=== PATIENT | male | born 1970 | race Caucasian/White ===

== ENCOUNTER 2019-02-22 09:48 | Inpatient (IN) | payer OTHER ==
[~2019-02-22] VITALS: Ht 175.3 cm; Wt 112.9 kg
[2019-02-22] VITALS (21 sets, daily range): BP systolic 103–135; BP diastolic 57–85; PULSE 61–89; RESP 12–20; Ht 175.3 cm; Wt 112.9 kg
[2019-02-22] MEDS ORDERED: CEFAZOLIN 2 GM/50 ML (PMX) 50 ML IVPB ONE (12:00)
[2019-02-22] MEDS ORDERED: SOD CHLORIDE 0.9% 1,000 ML IV SCH (12:00)
[2019-02-22] MEDS ORDERED: BUPIVACAINE 0.25% (MPF) 30 ML INJ ONE (13:54)
[2019-02-22] MEDS ORDERED: POLYMYXIN/BACITRACIN 1L IRRIG ONE (13:54)
--- NOTE | 2019-02-22 14:01 | PREAC ---
Date/Time of Note Date/Time of Note DATE: 02/22/19 TIME: 14:00 Anesthesia Eval and Record Evaluation Time Pre-Procedure Interview DATE: 02/22/19 TIME: 14:00 Age 48 Sex male NPO: 8 hrs Preoperative diagnosis Abdominal wall defect, ventral hernia Planned procedure Open component separation with mesh Past Medical History Past Medical History: Includes GI: Obesity Surgery & Anesthesia Issues No known issue Meds Anticoagulation: No Beta Shayla within 24 hr: No Reason Beta Shayla not given: Pt. not on B-Shayla Current Medications Sodium Chloride 1,000 ml @ 75 mls/hr [id number] IV ; Start 02/22/19 at 12:00; Stop 02/23/19 at 01:19 Meds reviewed: Yes Allergies Coded Allergies: No Known Allergy (Unverified , 02/21/19) Allergies Reviewed: Yes Labs/Studies Labs Reviewed: Reviewed by anesthesiologist Result Diagram: 02/22/19 1212 02/22/19 1212 Laboratory Tests 02/22/19 12:12 test: N/A Pre-procedure Exam Last vitals Vital Signs Date Temp Pulse Resp B/P (MAP) Pulse Ox O2 O2 Flow FiO2 Time Delivery Rate 02/22/19 98.2 61 18 130/82 96 12:07 (98) Airway: Adequate mouth opening Mallampati: Mallampati II Teeth: Normal Lung: Normal Heart: Normal ASA Physical Status ASA physical status: 2 Emergency: None Planned Anesthetic General/MAC: ETT Planned Pain Management Parenteral pain med Pre-operative Attestations Prior to commencing anesthesia and surgery, the patient was re-evaluated, there was verification of: *The patient's identity *The results of appropriate recent lab work and preoperative vital signs *The above evaluation not changing prior to induction *Anesthetic plan, risk benefits, alternative and complications discussed with patient/family; questions answered; patient/family understands, accepts and wishes to proceed. MICHELLE PALMER MD Feb 22, 2019 14:01
[2019-02-22] MEDS ORDERED: ROCURONIUM 50 MG INJ ONE ×2 (14:07→15:07)
[2019-02-22] MEDS ORDERED: SUCCINYLCHOLINE CHLORIDE 100 MG/5 ML SYG IV ONE (14:07)
[2019-02-22] MEDS ORDERED: GLYCOPYRROLATE 0.4 MG INJ ONE ×2 (14:07→14:30)
[2019-02-22] MEDS ORDERED: NEOSTIGMINE 3 MG/3 ML SYRINGE ONE (14:07)
[2019-02-22] MEDS ORDERED: LIDOCAINE 2% (SDV) 5 ML INJ ONE (14:08)
[2019-02-22] MEDS ORDERED: PROPOFOL 20 ML ONE (14:08)
[2019-02-22] MEDS ORDERED: ONDANSETRON 4 MG INJ ONE ×2 (14:30→16:02)
[2019-02-22] MEDS ORDERED: METOCLOPRAMIDE 10 MG INJ ONE (14:30)
[2019-02-22] MEDS ORDERED: ATROPINE 1 MG/10 ML SYRINGE ONE (14:47)
[2019-02-22] MEDS ORDERED: FENTAnyl 50 MCG/ML VIAL ONE (15:25)
[2019-02-22] MEDS ORDERED: CEFAZOLIN 2 GM/50 ML (PMX) 50 ML IVPB SCH (15:30)
--- NOTE | 2019-02-22 15:30 | OPR ---
Date/Time of Note Date/Time of Note DATE: 02/22/19 TIME: 15:23 Operative Report Procedure Date: Feb 22, 2019 Preoperative Diagnosis abdominal wall defect and incarcerated ventral hernia Postoperative Diagnosis same Operation/Procedure Performed 1. right rectus musculofascial flap cpt code 51265 2. left rectus musculofascial flap cpt code 93694 3. open incarcerated ventral hernia repair 4. implantation of 15 cm x 15 cm prolene mesh 5. open lysis of adhesions 6. localized adjacent tissue transfer with the use of skin flaps 88 sq cm defect of abd 7. therapeutic injection of subcutaneous local anesthesia Surgeon see signature line [employer] Tyler Anesthesia Type: general Estimated Blood Loss: 10 - 50 ml's Transfusion none Specimen none Grafts/Implants none Complications none Pt Condition Post Procedure: stable Indications This is a 48-year-old male with an abdominal defect and an incarcerated ventral hernia. He has a history of amphetamine use. He is currently doing well and is not using any illicit drugs. He request surgical repair of his abdominal defect and is incarcerated ventral hernia. Risks alternatives benefits and personal were discussed the patient. Potential complications including but not limited to bleeding infection injury to surrounding tissues mesh infection recurrence of hernia and need for additional operations were discussed the patient. Additionally due to his prior history of amphetamine use we talked at length about his postoperative pain medication regimen trying to focus more on Motrin and NSAID therapy versus narcotic therapy however he was told that he may need some narcotics in the immediate postoperative. And he was unwilling to try to minimize narcotic use. He expressed understanding of this discussion and consents to the operation. Procedure Description Patient is taken to the OR and prepped and draped in usual sterile fashion. Surgical time was performed. IV antibiotics given. Midline incision was made at the 10 blade. This generous incision was made from the subxiphoid region all the way down to the umbilicus and malachi-umbilicus and infraumbilical region. Dissection with cautery was carried down through the decussation of the rectus sheath. This incision was extended superiorly and inferiorly. The left rectus muscular fascial flap was then developed by developing the retrorectus space this incision was made with cautery and extended longitudinally superiorly and inferiorly. The retrorectus space was then developed and this was then carried out on the right side by developing the right rectus muscular fascial flap. We entered the retro-rectus space and this incision was extended superiorly inferiorly. The posterior rectus sheath was identified the ventral hernia was identified. Lysis of adhesions was performed and the incarcerated contents were manually reduced. After that the posterior rectus sheath was then closed in a primary fashion with a running #1 loop PDS from superior to inferior and inferior to superior and tied down the midline. The defect was then bolstered with a 15 x 15 polypropylene mesh. This was secured to the anterior rectus sheath with interrupted #1 Prolene. After the mesh was secured and hemostasis was ensured the anterior rectus sheath was then reapproximated in a running fashion from superior inferior and inferior superior with #1 loop PDS and tied down. Skin flaps were then developed and due to the large defect localization to his transfer with use of skin flaps was performed. Multilayer closure. The skin was then closed with skin qasim. Therapeutic subcutaneous local anesthesia was injected at the incision site. Dry dressings were applied. Edwardo MEYERS Feb 22, 2019 15:30
[2019-02-22] MEDS ORDERED: HYDROmorphONE 1 MG/5 ML IV SYRINGE IV PRN ×3 (16:00)
[2019-02-22] MEDS ORDERED: METOCLOPRAMIDE 10 MG INJ IV PRN (16:00)
[2019-02-22] MEDS ORDERED: FENTAnyl 50 MCG/ML VIAL IV PRN ×3 (16:00)
[2019-02-22] MEDS ORDERED: DIPHENHYDRAMINE 50 MG INJ IV PRN (16:00)
[2019-02-22] MEDS ORDERED: LABETALOL HCL 20MG INJ IV PRN (16:00)
[2019-02-22] MEDS ORDERED: MIDAZOLAM 1 MG/ML 2 ML INJ IV PRN (16:00)
[2019-02-22] MEDS ORDERED: MEPERIDINE 25 MG INJ IV PRN (16:00)
[2019-02-22] MEDS ORDERED: EPHEDrine 25 MG/5 ML SYG IV PRN (16:00)
[2019-02-22] MEDS ORDERED: hydrALAzine 20 MG INJ IV PRN (16:00)
[2019-02-22] MEDS ORDERED: OXYCODONE/ACETAMINOPHEN (5/325) TAB PO PRN ×2 (16:00)
[2019-02-22] MEDS ORDERED: ONDANSETRON 4 MG INJ IV PRN ×2 (16:00→23:00)
[2019-02-22] MEDS ORDERED: HYDROmorphONE 1 MG/5 ML IV SYRINGE IV ONE (16:01)
--- NOTE | 2019-02-22 17:38 | HP ---
Date/Time of Note Date/Time of Note DATE: 02/22/19 TIME: 17:32 Assessment/Plan VTE Prophylaxis SCD applied (from Nsg): Yes Pharmacological prophylaxis: NA/contraindicated Pharm contraindication: surgical contra Lines/Catheters IV Catheter Type (from Nrsg): Saline Lock Assessment/Plan Assessment/Plan -Abdominal wall defect and incarcerated ventral hernia, status post open incarcerated ventral hernia repair with mesh by Dr. Gallegos. Continue IV fluids and postoperative antibiotic. Continue Palmer and Dilaudid as needed for pain. Zofran as needed for nausea. Advance diet per surgery recommendations. -GERD continue Protonix. -Obesity Further recommendations based on clinical course. Plan of care discussed with Dr. Mccain. Result Diagram: 02/22/19 1609 02/22/19 1609 Results 24hrs Laboratory Tests Test 02/22/19 12:12 02/22/19 16:09 White Blood Count 8.9 10.4 Red Blood Count 4.63 L 4.70 Hemoglobin 13.9 L 14.0 Hematocrit 43.0 43.4 Mean Corpuscular Volume 92.9 92.3 Mean Corpuscular Hemoglobin 30.0 29.8 Mean Corpuscular Hemoglobin Concent 32.3 32.3 Red Cell Distribution Width 12.8 12.9 Platelet Count 134 L 143 Mean Platelet Volume 11.4 H 11.1 H Immature Granulocytes % 0.300 0.500 H Neutrophils % 71.6 72.1 Lymphocytes % 16.0 17.1 Monocytes % 9.0 8.3 Eosinophils % 2.7 1.8 Basophils % 0.4 0.2 Nucleated Red Blood Cells % 0.0 0.0 Immature Granulocytes # 0.030 0.050 H Neutrophils # 6.4 7.5 Lymphocytes # 1.4 1.8 Monocytes # 0.8 0.9 Eosinophils # 0.2 0.2 Basophils # 0.0 0.0 Nucleated Red Blood Cells # 0.0 0.0 Prothrombin Time 12.6 Prothrombin Time Ratio 1.0 INR International Normalized Ratio 0.93 Activated Partial Thromboplast Time 27.9 Sodium Level 140 141 Potassium Level 4.3 4.2 Chloride Level 107 106 Carbon Dioxide Level 27 27 Anion Gap 6 8 Blood Urea Nitrogen 16 16 Creatinine 0.88 0.98 Est Glomerular Filtrat Rate mL/min > 60 > 60 Glucose Level 85 122 Calcium Level 8.6 8.1 L Total Bilirubin 0.7 0.7 Direct Bilirubin 0.00 0.00 Indirect Bilirubin 0.7 0.7 Aspartate Amino Transf (AST/SGOT) 27 25 Alanine Aminotransferase (ALT/SGPT) 30 36 Alkaline Phosphatase 39 L 49 Total Protein 6.7 6.5 Albumin 3.9 3.8 Globulin 2.80 2.70 Albumin/Globulin Ratio 1.39 1.40 HPI/ROS Admit Date/Time Admit Date/Time Feb 22, 2019 at 10:41 Hx of Present Illness The patient is a 48-year-old gentleman with history of GERD and hyperlipidemia. Patient is not on any statins stating he is trying to reduce his cholesterol with diet and exercise. Patient was evaluated by Dr. Gallegos for abdominal wall defect and incarcerated ventral hernia. Patient was brought to the hospital and underwent open incarcerated ventral hernia repair with mesh. Postoperatively patient experiencing significant pain and patient is being admitted for further management. Patient denies any fever chills denies any nausea vomiting. ROS 12 point review of system is negative except for what mentioned in HPI PMH/Family/Social Past Medical History Medical History: GERD, high cholesterol Medications Current Medications Sodium Chloride 1,000 ml @ 75 mls/hr [id number] IV ; Start 02/22/19 at 12:00; Stop 02/23/19 at 01:19 Morphine Sulfate (morphine) 2 mg Q2H PRN IV PAIN LEVEL 6-10; Start 02/22/19 at 15:30 Acetaminophen/ Hydrocodone Bitart (Palmer (5/325)) 1 tab Q6H PRN PO PAIN LEVEL 6-10; Start 02/22/19 at 15:30 Sodium Chloride 1,000 ml @ 100 mls/hr Q10H IV ; Start 02/22/19 at 15:20 Ibuprofen (Motrin) 800 mg Q6H PRN PO MILD PAIN LEVEL 1-3; Start 02/22/19 at 15:30 Hydromorphone HCl (Dilaudid) 0.2 mg PACU PRN IV MILD PAIN 1-3; Start 02/22/19 at 16:00; Stop 02/22/19 at 20:30 Hydromorphone HCl (Dilaudid) 0.4 mg PACU PRN IV MOD PAIN 4-6 Last administered on 02/22/19at 16:11; Admin Dose 0.4 MG; Start 02/22/19 at 16:00; Stop 02/22/19 at 20:30 Hydromorphone HCl (Dilaudid) 0.6 mg PACU PRN IV SEVERE PAIN 7-10 Last adminis tered on 02/22/19at 16:04; Admin Dose 0.6 MG; Start 02/22/19 at 16:00; Stop 02/22/19 at 20:30 Fentanyl (Sublimaze) 25 mcg PACU ORDER PRN IV MILD PAIN 1-3; Start 02/22/19 at 16:00; Stop 02/22/19 at 20:30 Fentanyl (Sublimaze) 50 mcg PACU ORDER PRN IV MOD PAIN 4-6; Start 02/22/19 at 16:00; Stop 02/22/19 at 20:30 Fentanyl (Sublimaze) 75 mcg PACU ORDER PRN IV SEVERE PAIN 7-10; Start 02/22/19 at 16:00; Stop 02/22/19 at 20:30 Oxycodone/ Acetaminophen (Percocet (5/ 325)) 1 tab PACU ORDER PRN PO .PAIN 1-5; Start 02/22/19 at 16:00; Stop 02/22/19 at 20:30 Oxycodone/ Acetaminophen (Percocet (5/ 325)) 2 tab PACU ORDER PRN PO .PAIN 6-10; Start 02/22/19 at 16:00; Stop 02/22/19 at 20:30 Ondansetron HCl (Zofran Inj) 4 mg PACU ORDER PRN IV NAUSEA/VOMITING Last administered on 02/22/19at 16:12; Admin Dose 4 MG; Start 02/22/19 at 16:00; Stop 02/22/19 at 20:30 Metoclopramide HCl (Reglan) 10 mg PACU ORDER PRN IV NAUSEA/VOMITING; Start 02/22/19 at 16:00; Stop 02/22/19 at 20:30 Labetalol HCl (Labetalol) 5 mg PACU ORDER PRN IV HIGH BLOOD PRESSURE; Start 02/22/19 at 16:00; Stop 02/22/19 at 20:30 Hydralazine HCl (Apresoline) 5 mg PACU ORDER PRN IV HIGH BLOOD PRESSURE; Start 02/22/19 at 16:00; Stop 02/22/19 at 20:30 Ephedrine Sulfate 5 mg PACU ORDER PRN IV BLOOD PRESSURE SUPPORT; Start 02/22/19 at 16:00; Stop 02/22/19 at 20:30 Meperidine HCl (Demerol) 25 mg PACU ORDER PRN IV .RIGORS Last administered on 02/22/19at 16:11; Admin Dose 25 MG; Start 02/22/19 at 16:00; Stop 02/22/19 at 20:30 Diphenhydramine HCl (Benadryl) 25 mg PACU ORDER PRN IV .PRURITUS; Start 02/22/19 at 16:00; Stop 02/22/19 at 20:30 Midazolam HCl (Versed) 0.5 mg PACU ORDER PRN IV .ANXIETY; Start 02/22/19 at 16:00; Stop 02/22/19 at 20:30 Cefazolin Sodium/ Dextrose 50 ml @ 100 mls/hr Q8H IVPB ; Start 02/22/19 at 22:30 Coded Allergies: No Known Allergy (Unverified , 02/21/19) Past Surgical History Past Surgical Hx: other (Closure of laceration of the left hand) Family History Significant Family History: no pertinent family hx Social History Alcohol Use: none Smoking Status: Former smoker Drug Use: none Exam/Review of Systems Vital Signs Vitals Vital Signs Date Temp Pulse Resp B/P (MAP) Pulse Ox O2 O2 Flow FiO2 Time Delivery Rate 02/22/19 89 12 116/85 98 Nasal 2.0 16:30 (95) Cannula 02/22/19 98.3 16:20 Exam Constitutional: alert, oriented Head: normocephalic Eyes: nl conjunctiva Neck: supple Respiratory: clear to auscultation Cardiovascular: regular rate and rhythm Gastrointestinal: soft, other (s/p surgery with D/C/I dressing) Musculoskeletal: nl extremities to inspection Extremities: normal pulses Neurological: nl mental status Skin: nl RAS Anderson Feb 22, 2019 17:38
--- NOTE | 2019-02-22 18:47 | PAC ---
Date/Time of Note Date/Time of Note DATE: 02/22/19 TIME: 18:47 Post-Anesthesia Notes Post-Anesthesia Note Last documented vital signs Vital Signs Date Temp Pulse Resp B/P (MAP) Pulse Ox O2 O2 Flow FiO2 Time Delivery Rate 02/22/19 69 16 128/75 94 Nasal 2.0 18:05 (92) Cannula 02/22/19 98.2 16:50 Activity: WNL Respiratory function: WNL Cardiovascular function: WNL Mental status: Baseline Pain reasonably controlled: Yes Hydration appropriate: Yes Nausea/Vomiting absent: Yes MICHELLE PALMER MD Feb 22, 2019 18:47
[2019-02-22] MEDS: morphine 2 MG INJ IV PRN ×2 (19:53→22:46)
[2019-02-22] MEDS: HYDROCODONE/APAP (5/325) TAB PO PRN (21:10)
[2019-02-22] MEDS: SOD CHLORIDE 0.9% 1,000 ML IV SCH (22:47)
[2019-02-22] MEDS: CEFAZOLIN 2 GM/50 ML (PMX) 50 ML IVPB SCH (23:09)
[2019-02-23 00:13] VITALS: BP 125/72; PULSE 70; RESP 19
[2019-02-23] MEDS: SOD CHLORIDE 0.9% 1,000 ML IV SCH ×3 (01:20→20:59)
[2019-02-23] MEDS: morphine 2 MG INJ IV PRN ×3 (03:21→15:31)
[2019-02-23 05:30] VITALS: BP 138/78; PULSE 72; RESP 18
[2019-02-23] MEDS ORDERED: PANTOPRAZOLE (EC) 40 MG TAB PO SCH (06:00)
[2019-02-23] MEDS: CEFAZOLIN 2 GM/50 ML (PMX) 50 ML IVPB SCH ×3 (06:28→22:23)
[2019-02-23] MEDS: HYDROCODONE/APAP (5/325) TAB PO PRN (06:34)
[2019-02-23 07:29] VITALS: BP 131/62; PULSE 82; RESP 19
--- NOTE | 2019-02-23 08:43 | PN ---
Date/Time of Note Date/Time of Note DATE: 02/23/19 TIME: 07:33 Assessment/Plan VTE Prophylaxis Risk score (from [facility] [place])>0 risk: 4 SCD applied (from [facility] [place]): Yes SCD contraindicated: other Pharmacological prophylaxis: other Pharm contraindication: other Lines/Catheters IV [facility]ter [facility] (from [facility]): Peripheral IV Assessment/Plan Assessment/Plan -Abdominal wall defect and incarcerated ventral hernia - status post open incarcerated ventral hernia repair with mesh by Dr. Gallegos. - Continue IV fluids and postoperative antibiotic. - Continue Zortman and Dilaudid as needed for pain. Zofran as needed for nausea. - Advance diet per surgery recommendations. -GERD continue Protonix. -Obesity - weight management Further recommendations based on clinical course. Plan of care discussed with Dr. Mccain. Result Diagram: 02/23/19 0451 02/23/19 0451 Results 24hrs Laboratory Tests Test 02/22/19 12:12 02/22/19 16:09 02/23/19 04:51 White Blood Count 8.9 10.4 13.5 #H Red Blood Count 4.63 L 4.70 4.58 L Hemoglobin 13.9 L 14.0 13.9 L Hematocrit 43.0 43.4 42.6 Mean Corpuscular Volume 92.9 92.3 93.0 Mean Corpuscular Hemoglobin 30.0 29.8 30.3 Mean Corpuscular Hemoglobin Concent 32.3 32.3 32.6 Red Cell Distribution Width 12.8 12.9 13.0 Platelet Count 134 L 143 135 L Mean Platelet Volume 11.4 H 11.1 H 11.5 H Immature Granulocytes % 0.300 0.500 H 0.300 Neutrophils % 71.6 72.1 83.5 H Lymphocytes % 16.0 17.1 7.6 L Monocytes % 9.0 8.3 8.4 Eosinophils % 2.7 1.8 0.1 Basophils % 0.4 0.2 0.1 Nucleated Red Blood Cells % 0.0 0.0 0.0 Immature Granulocytes # 0.030 0.050 H 0.040 H Neutrophils # 6.4 7.5 11.3 H Lymphocytes # 1.4 1.8 1.0 Monocytes # 0.8 0.9 1.1 H Eosinophils # 0.2 0.2 0.0 Basophils # 0.0 0.0 0.0 Nucleated Red Blood Cells # 0.0 0.0 0.0 Prothrombin Time 12.6 Prothrombin Time Ratio 1.0 INR International Normalized Ratio 0.93 Activated Partial Thromboplast Time 27.9 Sodium Level 140 141 141 Potassium Level 4.3 4.2 5.0 Chloride Level 107 106 104 Carbon Dioxide Level 27 27 28 Anion Gap 6 8 9 Blood Urea Nitrogen 16 16 17 Creatinine 0.88 0.98 1.03 Est Glomerular Filtrat Rate mL/min > 60 > 60 > 60 Glucose Level 85 122 117 Calcium Level 8.6 8.1 L 8.0 L Total Bilirubin 0.7 0.7 0.8 Direct Bilirubin 0.00 0.00 0.00 Indirect Bilirubin 0.7 0.7 0.8 Aspartate Amino Transf (AST/SGOT) 27 25 24 Alanine Aminotransferase (ALT/SGPT) 30 36 30 Alkaline Phosphatase 39 L 49 43 Total Protein 6.7 6.5 6.6 Albumin 3.9 3.8 3.7 Globulin 2.80 2.70 2.90 Albumin/Globulin Ratio 1.39 1.40 1.27 Subjective 24 Hr Interval Summary Free Text/Dictation WBC slightly up today but patient is afebrile no new events last night dw staff Constitutional: requiring O2 Eyes: no complaints ENT: no complaints Respiratory: no complaints Cardiovascular: no complaints Gastrointestinal: pain Genitourinary: no complaints Musculoskeletal: no complaints Skin: no complaints Neurologic: no complaints Psychological: nl mood/affect Exam/Review of Systems Exam Vitals Vital Signs Date Temp Pulse Resp B/P (MAP) Pulse Ox O2 O2 Flow FiO2 Time Delivery Rate 02/23/19 98.1 82 19 131/62 98 07:29 (85) 02/23/19 Nasal 2.0 05:30 Cannula Intake and Output 02/22/19 02/22/19 02/23/19 1515:00 23:00 07:00 IntakeIntake Total 800 ml 420 ml 350 ml OutputOutput Total 20 ml 400 ml BalanceBalance 800 ml 400 ml -50 ml Constitutional: well developed Psych: nl mood/affect Eyes: nl lids, nl sclera ENMT: nl external ears & nose Neck: non-tender Respiratory: clear to auscultation Cardiovascular: nl pulses, other Gastrointestinal: soft, other (surgical abdomen- DDI ) Musculoskeletal: nl extremities to inspection Extremities: normal pulses Neurological: nl mental status, nl speech Lymph: nontender Results Results 24hrs Laboratory Tests Test 02/22/19 12:12 02/22/19 16:09 02/23/19 04:51 White Blood Count 8.9 10.4 13.5 #H Red Blood Count 4.63 L 4.70 4.58 L Hemoglobin 13.9 L 14.0 13.9 L Hematocrit 43.0 43.4 42.6 Mean Corpuscular Volume 92.9 92.3 93.0 Mean Corpuscular Hemoglobin 30.0 29.8 30.3 Mean Corpuscular Hemoglobin Concent 32.3 32.3 32.6 Red Cell Distribution Width 12.8 12.9 13.0 Platelet Count 134 L 143 135 L Mean Platelet Volume 11.4 H 11.1 H 11.5 H Immature Granulocytes % 0.300 0.500 H 0.300 Neutrophils % 71.6 72.1 83.5 H Lymphocytes % 16.0 17.1 7.6 L Monocytes % 9.0 8.3 8.4 Eosinophils % 2.7 1.8 0.1 Basophils % 0.4 0.2 0.1 Nucleated Red Blood Cells % 0.0 0.0 0.0 Immature Granulocytes # 0.030 0.050 H 0.040 H Neutrophils # 6.4 7.5 11.3 H Lymphocytes # 1.4 1.8 1.0 Monocytes # 0.8 0.9 1.1 H Eosinophils # 0.2 0.2 0.0 Basophils # 0.0 0.0 0.0 Nucleated Red Blood Cells # 0.0 0.0 0.0 Prothrombin Time 12.6 Prothrombin Time Ratio 1.0 INR International Normalized Ratio 0.93 Activated Partial Thromboplast Time 27.9 Sodium Level 140 141 141 Potassium Level 4.3 4.2 5.0 Chloride Level 107 106 104 Carbon Dioxide Level 27 27 28 Anion Gap 6 8 9 Blood Urea Nitrogen 16 16 17 Creatinine 0.88 0.98 1.03 Est Glomerular Filtrat Rate mL/min > 60 > 60 > 60 Glucose Level 85 122 117 Calcium Level 8.6 8.1 L 8.0 L Total Bilirubin 0.7 0.7 0.8 Direct Bilirubin 0.00 0.00 0.00 Indirect Bilirubin 0.7 0.7 0.8 Aspartate Amino Transf (AST/SGOT) 27 25 24 Alanine Aminotransferase (ALT/SGPT) 30 36 30 Alkaline Phosphatase 39 L 49 43 Total Protein 6.7 6.5 6.6 Albumin 3.9 3.8 3.7 Globulin 2.80 2.70 2.90 Albumin/Globulin Ratio 1.39 1.40 1.27 Medications Medication Current Medications Morphine Sulfate (morphine) 2 mg Q2H PRN IV PAIN LEVEL 6-10 Last administered on 02/23/19at 03:21; Admin Dose 2 MG; Start 02/22/19 at 15:30 Acetaminophen/ Hydrocodone Bitart (Zortman (5/325)) 1 tab Q6H PRN PO PAIN LEVEL 6-10 Last administered on 02/23/19at 06:34; Admin Dose 1 TAB; Start 02/22/19 at 15:30 Sodium Chloride 1,000 ml @ 100 mls/hr Q10H IV Last administered on 02/22/19at 22:47; Admin Dose 100 MLS/HR; Start 02/22/19 at 15:20 Ibuprofen (Motrin) 800 mg Q6H PRN PO MILD PAIN LEVEL 1-3; Start 02/22/19 at 15:30 Cefazolin Sodium/ Dextrose 50 ml @ 100 mls/hr Q8H IVPB Last administered on 02/23/19at 06:28; Admin Dose 100 MLS/HR; Start 02/22/19 at 22:30 Pantoprazole (Protonix Tab) 40 mg DAILY@06 PO Last administered on 02/23/19at 06:28; Admin Dose 40 MG; Start 02/23/19 at 06:00 Ondansetron HCl (Zofran Inj) 4 mg Q4H PRN IV NAUSEA AND/OR VOMITING; Start 02/22/19 at 23:00 TONE BROWN Feb 23, 2019 07:43
[2019-02-23] MEDS: IBUPROFEN 800 MG TAB PO PRN (09:34)
[2019-02-23 15:14] VITALS: BP 128/68; PULSE 78; RESP 19
[2019-02-23] MEDS: CALCIUM CARBONATE 500 MG CHEW TAB PO PRN (17:49)
[2019-02-23] MEDS: PANTOPRAZOLE (EC) 40 MG TAB PO SCH (18:00)
[2019-02-23 20:03] VITALS: BP 137/88; PULSE 75; RESP 18
[2019-02-24 02:40] VITALS: BP 112/81; PULSE 107; RESP 20
[2019-02-24] MEDS: CEFAZOLIN 2 GM/50 ML (PMX) 50 ML IVPB SCH ×3 (05:33→21:36)
[2019-02-24] MEDS: CALCIUM CARBONATE 500 MG CHEW TAB PO PRN (05:33)
[2019-02-24] MEDS: PANTOPRAZOLE (EC) 40 MG TAB PO SCH ×2 (05:33→18:39)
[2019-02-24 07:16] VITALS: BP 121/77; PULSE 83; RESP 15
[2019-02-24] MEDS: SOD CHLORIDE 0.9% 1,000 ML IV SCH ×2 (07:20→16:02)
[2019-02-24] MEDS: IBUPROFEN 800 MG TAB PO PRN ×2 (08:42→14:30)
[2019-02-24] MEDS: CHOLECALCIFEROL 1,000 UNIT TAB PO SCH (08:42)
--- NOTE | 2019-02-24 10:39 | PN ---
Date/Time of Note Date/Time of Note DATE: 02/24/19 TIME: 10:39 Assessment/Plan VTE Prophylaxis Risk score (from Ns)>0 risk: 3 SCD applied (from Nsg): Yes Pharmacological prophylaxis: LMWH Lines/Catheters IV Catheter Type (from Nrsg): Saline Lock Urinary Cath still in place: No Assessment/Plan Hospital Course -Abdominal wall defect and incarcerated ventral hernia, status post open in carcerated ventral hernia repair with mesh by Dr. Gallegos. Continue IV fluids and postoperative antibiotic. Continue Colwell and Dilaudid as needed for pain. Zofran as needed for nausea. Advance diet per surgery recommendations. -GERD continue Protonix. -Obesity Result Diagram: 02/24/19 0454 02/24/19 0454 Results 24hrs Laboratory Tests Test 02/24/19 04:54 White Blood Count 10.5 # Red Blood Count 4.41 L Hemoglobin 13.3 L Hematocrit 41.4 L Mean Corpuscular Volume 93.9 Mean Corpuscular Hemoglobin 30.2 Mean Corpuscular Hemoglobin Concent 32.1 Red Cell Distribution Width 13.0 Platelet Count 121 L Mean Platelet Volume 11.4 H Immature Granulocytes % 0.300 Neutrophils % 72.7 Lymphocytes % 12.6 L Monocytes % 13.0 H Eosinophils % 1.2 Basophils % 0.2 Nucleated Red Blood Cells % 0.0 Immature Granulocytes # 0.030 Neutrophils # 7.6 H Lymphocytes # 1.3 Monocytes # 1.4 H Eosinophils # 0.1 Basophils # 0.0 Nucleated Red Blood Cells # 0.0 Sodium Level 141 Potassium Level 4.3 Chloride Level 104 Carbon Dioxide Level 31 Anion Gap 6 Blood Urea Nitrogen 14 Creatinine 1.03 Est Glomerular Filtrat Rate mL/min > 60 Glucose Level 111 Calcium Level 8.4 Total Bilirubin 0.9 Direct Bilirubin 0.00 Indirect Bilirubin 0.9 Aspartate Amino Transf (AST/SGOT) 20 Alanine Aminotransferase (ALT/SGPT) 24 Alkaline Phosphatase 44 Total Protein 6.5 Albumin 3.6 Globulin 2.90 Albumin/Globulin Ratio 1.24 Subjective 24 Hr Interval Summary Free Text/Dictation Patient still has abdominal pain but is recovering Exam/Review of Systems Exam Vitals Vital Signs Date Temp Pulse Resp B/P (MAP) Pulse Ox O2 O2 Flow FiO2 Time Delivery Rate 02/24/19 98.2 83 15 121/77 100 Room Air 07:16 (92) 02/23/19 2.0 05:30 Intake and Output 02/23/19 02/23/19 02/24/19 1515:00 23:00 07:00 IntakeIntake Total 1180 ml 1100 ml 1050 ml OutputOutput Total 400 ml 800 ml BalanceBalance 780 ml 1100 ml 250 ml Constitutional: well developed Head: normocephalic, atraumatic Neck: supple Respiratory: diminished breath sounds Cardiovascular: regular rate and rhythm Gastrointestinal: soft, non-tender Extremities: normal pulses Results Results 24hrs Laboratory Tests Test 02/24/19 04:54 White Blood Count 10.5 # Red Blood Count 4.41 L Hemoglobin 13.3 L Hematocrit 41.4 L Mean Corpuscular Volume 93.9 Mean Corpuscular Hemoglobin 30.2 Mean Corpuscular Hemoglobin Concent 32.1 Red Cell Distribution Width 13.0 Platelet Count 121 L Mean Platelet Volume 11.4 H Immature Granulocytes % 0.300 Neutrophils % 72.7 Lymphocytes % 12.6 L Monocytes % 13.0 H Eosinophils % 1.2 Basophils % 0.2 Nucleated Red Blood Cells % 0.0 Immature Granulocytes # 0.030 Neutrophils # 7.6 H Lymphocytes # 1.3 Monocytes # 1.4 H Eosinophils # 0.1 Basophils # 0.0 Nucleated Red Blood Cells # 0.0 Sodium Level 141 Potassium Level 4.3 Chloride Level 104 Carbon Dioxide Level 31 Anion Gap 6 Blood Urea Nitrogen 14 Creatinine 1.03 Est Glomerular Filtrat Rate mL/min > 60 Glucose Level 111 Calcium Level 8.4 Total Bilirubin 0.9 Direct Bilirubin 0.00 Indirect Bilirubin 0.9 Aspartate Amino Transf (AST/SGOT) 20 Alanine Aminotransferase (ALT/SGPT) 24 Alkaline Phosphatase 44 Total Protein 6.5 Albumin 3.6 Globulin 2.90 Albumin/Globulin Ratio 1.24 Medications Medication Current Medications Morphine Sulfate (morphine) 2 mg Q2H PRN IV PAIN LEVEL 6-10 Last administered on 02/23/19at 15:31; Admin Dose 2 MG; Start 02/22/19 at 15:30 Acetaminophen/ Hydrocodone Bitart (Colwell (5/325)) 1 tab Q6H PRN PO PAIN LEVEL 6-10 Last administered on 02/23/19at 06:34; Admin Dose 1 TAB; Start 02/22/19 at 1 5:30 Sodium Chloride 1,000 ml @ 100 mls/hr Q10H IV Last administered on 02/23/19 20:59; Admin Dose 100 MLS/HR; Start 02/22/19 at 15:20 Ibuprofen (Motrin) 800 mg Q6H PRN PO MILD PAIN LEVEL 1-3 Last administered on 02/24/19 08:42; Admin Dose 800 MG; Start 02/22/19 at 15:30 Cefazolin Sodium/ Dextrose 50 ml @ 100 mls/hr Q8H IVPB Last administered on 02/24/19 05:33; Admin Dose 100 MLS/HR; Start 02/22/19 at 22:30 Ondansetron HCl (Zofran Inj) 4 mg Q4H PRN IV NAUSEA AND/OR VOMITING Last administered on 02/23/19 16:53; Admin Dose 4 MG; Start 02/22/19 at 23:00 Pantoprazole (Protonix Tab) 40 mg BID@0600,1800 PO Last administered on 02/24/19 05:33; Admin Dose 40 MG; Start 02/23/19 at 18:00 Calcium Carbonate (Tums) 1,000 mg Q6H PRN PO HEARTBURN Last administered on 02/24/19 05:33; Admin Dose 1,000 MG; Start 02/23/19 at 17:30 Cholecalciferol (Vitamin D) 1,000 unit DAILY PO Last administered on 02/24/19 08:42; Admin Dose 1,000 UNIT; Start 02/24/19 at 09:00 EVIN BOCANEGRA Feb 24, 2019 10:39
[2019-02-24] MEDS: HYDROCODONE/APAP (5/325) TAB PO PRN ×2 (11:18→21:40)
[2019-02-24 13:36] VITALS: BP 129/83; PULSE 77; RESP 14
[2019-02-24] MEDS ORDERED: MAGNESIUM HYDROXIDE 30ML CUP PO STA (14:13)
--- NOTE | 2019-02-24 15:43 | PN ---
DATE: 02/24/2019 Postop day #2 status post laparotomy, abdominal ventral hernia repair, utilizing the component separation technique and application of mesh. SUBJECTIVE: States that the pain is slightly better. Has been out of bed only to go to the bathroom for urination. No bowel movement. Not passing any gas. No vomiting, slight nausea. drainage from the lower part of the incision, which was moderate yesterday, today is slight amount. Bowel sound is 2+/4+. ASSESSMENT AND PLAN: The patient is relatively stable. No bowel movement, no passing gas. He had some nausea today, so will continue observation and encouraged out of bed, walking around. Dictated By: LEESA FLAHERTY MD PS/NTS Conf#: [id number] DID#: [id number] CC: SASHA MEYERS MD;*EndCC* MTDD
[2019-02-24 20:00] VITALS: BP 118/78; PULSE 65; RESP 18
[2019-02-25 02:00] VITALS: BP 113/77; PULSE 67; RESP 17
[2019-02-25] MEDS: SOD CHLORIDE 0.9% 1,000 ML IV SCH ×2 (03:20→07:56)
[2019-02-25] MEDS: PANTOPRAZOLE (EC) 40 MG TAB PO SCH ×2 (05:34→17:24)
[2019-02-25] MEDS: CEFAZOLIN 2 GM/50 ML (PMX) 50 ML IVPB SCH ×3 (05:34→21:39)
[2019-02-25] MEDS: CALCIUM CARBONATE 500 MG CHEW TAB PO PRN (05:34)
[2019-02-25 07:55] VITALS: BP 133/94; PULSE 66; RESP 18
[2019-02-25] MEDS: HYDROCODONE/APAP (5/325) TAB PO PRN ×3 (07:56→21:03)
[2019-02-25] MEDS: CHOLECALCIFEROL 1,000 UNIT TAB PO SCH (07:56)
--- NOTE | 2019-02-25 11:32 | PN ---
Date/Time of Note Date/Time of Note DATE: 02/25/19 TIME: 11:31 Assessment/Plan VTE Prophylaxis Risk score (from Ns)>0 risk: 6 SCD applied (from Nsg): Yes Pharmacological prophylaxis: LMWH Lines/Catheters IV Catheter Type (from Nrsg): Peripheral IV Urinary Cath still in place: No Assessment/Plan Hospital Course -Abdominal wall defect and incarcerated ventral hernia, status post open incarcerated ventral hernia repair with mesh by Dr. Gallegos. Continue IV fluids and postoperative antibiotic. Continue [place] and Dilaudid as needed for pain. Zofran as needed for nausea. Advance diet per surgery recommendations. -GERD continue Protonix. -Obesity Result Diagram: 02/24/1945302/24/19453 Subjective 24 Hr Interval Summary Free Text/Dictation Patient doing ok with some postoperative pain, but is concerned regarding constipation Exam/Review of Systems Exam Vitals Vital Signs Date Temp Pulse Resp B/P (MAP) Pulse Ox O2 O2 Flow FiO2 Time Delivery Rate 02/25/19 98.3 66 18 133/94 95 Room Air 07:55 (107) 02/23/19 2.0 05:30 Intake and Output 02/24/19 02/24/19 02/25/19 1515:00 23:00 07:00 IntakeIntake Total 1250 ml 250 ml 50 ml OutputOutput Total 1450 ml BalanceBalance -200 ml 250 ml 50 ml Constitutional: well developed Head: normocephalic, atraumatic Neck: supple Respiratory: clear to auscultation Cardiovascular: regular rate and rhythm Gastrointestinal: soft, non-tender Extremities: normal pulses Medications Medication Current Medications Morphine Sulfate (morphine) 2 mg Q2H PRN IV PAIN LEVEL 6-10 Last administered on 02/23/19at 15:31; Admin Dose 2 MG; Start 02/22/19 at 15:30 Acetaminophen/ Hydrocodone Bitart ([place] (5/325)) 1 tab Q6H PRN PO PAIN LEVEL 6-10 Last administered on 02/25/19at 07:56; Admin Dose 1 TAB; Start 02/22/19 at 15:30 Sodium Chloride 1,000 ml @ 100 mls/hr Q10H IV Last administered on 02/25/19at 07:56; Admin Dose 100 MLS/HR; Start 02/22/19 at 15:20 Ibuprofen (Motrin) 800 mg Q6H PRN PO MILD PAIN LEVEL 1-3 Last administered on 02/24/19 14:30; Admin Dose 800 MG; Start 02/22/19 at 15:30 Cefazolin Sodium/ Dextrose 50 ml @ 100 mls/hr Q8H IVPB Last administered on 02/25/19 05:34; Admin Dose 100 MLS/HR; Start 02/22/19 at 22:30 Ondansetron HCl (Zofran Inj) 4 mg Q4H PRN IV NAUSEA AND/OR VOMITING Last administered on 02/23/19at 16:53; Admin Dose 4 MG; Start 02/22/19 at 23:00 Pantoprazole (Protonix Tab) 40 mg BID@0600,1800 PO Last administered on 02/25/19 05:34; Admin Dose 40 MG; Start 02/23/19 at 18:00 Calcium Carbonate (Tums) 1,000 mg Q6H PRN PO HEARTBURN Last administered on 02/25/19 05:34; Admin Dose 1,000 MG; Start 02/23/19 at 17:30 Cholecalciferol (Vitamin D) 1,000 unit DAILY PO Last administered on 02/25/19 07:56; Admin Dose 1,000 UNIT; Start 02/24/19 at 09:00 Magnesium Hydroxide (Milk Of Mag) 30 ml QHS PRN PO CONSTIPATION; Start 02/25/19 at 14:30 EVIN BOCANEGRA Feb 25, 2019 11:32
[2019-02-25] MEDS: BISACODYL (EC) 5 MG TAB PO PRN (11:55)
[2019-02-25] MEDS: IBUPROFEN 800 MG TAB PO PRN ×2 (11:57→17:29)
[2019-02-25] MEDS: MINERAL OIL 30ML CUP PO SCH ×2 (13:47→21:39)
[2019-02-25 14:00] VITALS: BP 128/80; PULSE 68; RESP 18
[2019-02-25] MEDS ORDERED: MAGNESIUM HYDROXIDE 30ML CUP PO PRN (14:30)
--- NOTE | 2019-02-25 16:15 | PN ---
DATE: 02/25/2019 Postoperative day #3 status post laparotomy, repair of the ventral hernia utilizing component separat ion technique and mesh. SUBJECTIVE: Complains of lack of bowel movement. Has not been passing that much of gas either. No vomiting, occasional nausea, no fever, no chills. OBJECTIVE: GENERAL: Awake, alert and oriented. VITAL SIGNS: Temperature maximum today 98.3, heart rate 66, respiration 18, blood pressure 133/94, s aturation 95% room air. HEART: Regular. LUNGS: Clear. ABDOMEN: Protruded with fat. Slightly distended with gas. Bowel sounds 2+/4+. Soft, slight tender ness on deep pressure. EXTREMITIES: Legs no calf tenderness. LABORATORY DATA: No lab tests done today. IMPRESSION AND PLAN: Postoperative day #3. The patient appears stable, but has not had any bowel mo vement, neither passing any gas, so encouraged to walk around as much as possible. Encouraged to use incentive spirometry and we will give milk of magnesia, mineral oil, and Dulcolax anticipating bowel movement by tomorrow. Dictated By: LEESA FLAHERTY MD PS/NTS Conf#: [id number] DID#: [id number] CC: SASHA MEYERS MD;*EndCC*
[2019-02-25 19:45] VITALS: BP 136/96; PULSE 75; RESP 18
[2019-02-26 02:30] VITALS: BP 132/77; PULSE 60; RESP 19
[2019-02-26] MEDS: CEFAZOLIN 2 GM/50 ML (PMX) 50 ML IVPB SCH (07:01)
[2019-02-26] MEDS: PANTOPRAZOLE (EC) 40 MG TAB PO SCH (07:01)
[2019-02-26 07:22] VITALS: BP 132/107; PULSE 65; RESP 18
--- NOTE | 2019-02-26 08:03 | PN ---
DATE: 02/23/2019 SUBJECTIVE: Postop day #1 status post open component separation and application of mesh repair of the ventral hernia abdominal wall defect. OBJECTIVE: He has had some nausea , oxygen saturation 96. LAB DATA:. Hemoglobin 13.9, hematocrit 42.6 within normal limits. . ABDOMEN: Protruded with fat. There has been some blood-tinged fluid oozing from the inferior part of the incision so much that the dressing had to be changed and we changed it and I inspected the wound, grossly is intact. Dressing was applied. PLAN: The patient was advised to stay n.p.o. May have ice chips and then initially instructed to reinforce the dressing p.r.n. The patient has not had any bowel movement or has not passed any gas. Dictated By: LEESA FLAHERTY MD PS/NTS Conf#: [id number] DID#: [id number] CC: SASHA MEYERS MD;*EndCC* MTDD
[2019-02-26] MEDS: CHOLECALCIFEROL 1,000 UNIT TAB PO SCH (08:25)
[2019-02-26] MEDS: IBUPROFEN 800 MG TAB PO PRN ×2 (08:25→15:11)
[2019-02-26] MEDS: BISACODYL (EC) 5 MG TAB PO PRN (08:26)
[2019-02-26] MEDS: MINERAL OIL 30ML CUP PO SCH (08:30)
--- NOTE | 2019-02-26 09:23 | PN ---
Date/Time of Note Date/Time of Note DATE: 02/26/19 TIME: 09:22 Assessment/Plan VTE Prophylaxis Risk score (from Nsg)>0 risk: 7 SCD applied (from Nsg): Yes Pharmacological prophylaxis: other Lines/Catheters IV Catheter Type (from Nrsg): Peripheral IV Urinary Cath still in place: No Assessment/Plan Assessment/Plan s/p open component separation with mesh with constipation now resolving ok to dc home on NSAIDS due to his prior history of drug abuse Result Diagram: 02/24/194 02/24/19453 Subjective 24 Hr Interval Summary Free Text/Dictation patient is doing well and had a small bm this morning Exam/Review of Systems Exam Vitals Vital Signs Date Temp Pulse Resp B/P (MAP) Pulse Ox O2 O2 Flow FiO2 Time Delivery Rate 02/26/19 98.1 65 18 132/107 94 07:22 (115) 02/26/19 Room Air 02:30 02/23/19 2.0 05:30 Intake and Output 02/25/19 02/25/19 02/26/19 1515:00 23:00 07:00 IntakeIntake Total 1050 ml 1550 ml BalanceBalance 1050 ml 1550 ml Exam c/d/i no drainage Medications Medication Current Medications Morphine Sulfate (morphine) 2 mg Q2H PRN IV PAIN LEVEL 6-10 Last administered on 02/23/19at 15:31; Admin Dose 2 MG; Start 02/22/19 at 15:30 Acetaminophen/ Hydrocodone Bitart ([place] (5/325)) 1 tab Q6H PRN PO PAIN LEVEL 6-10 Last administered on 02/25/19at 21:03; Admin Dose 1 TAB; Start 02/22/19 at 15:30 Ibuprofen (Motrin) 800 mg Q6H PRN PO MILD PAIN LEVEL 1-3 Last administered on 02/26/19at 08:25; Admin Dose 800 MG; Start 02/22/19 at 15:30 Cefazolin Sodium/ Dextrose 50 ml @ 100 mls/hr Q8H IVPB Last administered on 02/26/19at 07:01; Admin Dose 100 MLS/HR; Start 02/22/19 at 22:30 Ondansetron HCl (Zofran Inj) 4 mg Q4H PRN IV NAUSEA AND/OR VOMITING Last administered on 02/23/19at 16:53; Admin Dose 4 MG; Start 02/22/19 at 23:00 Pantoprazole (Protonix Tab) 40 mg BID@0600,1800 PO Last administered on 02/26/19 07:01; Admin Dose 40 MG; Start 02/23/19 at 18:00 Calcium Carbonate (Tums) 1,000 mg Q6H PRN PO HEARTBURN Last administered on 02/25/19 05:34; Admin Dose 1,000 MG; Start 02/23/19 at 17:30 Cholecalciferol (Vitamin D) 1,000 unit DAILY PO Last administered on 02/26/19 08:25; Admin Dose 1,000 UNIT; Start 02/24/19 at 09:00 Magnesium Hydroxide (Milk Of Mag) 30 ml QHS PRN PO CONSTIPATION Last administered on 02/25/19 21:04; Admin Dose 30 ML; Start 02/25/19 at 14:30 Bisacodyl (Dulcolax) 10 mg DAILY PRN PO CONSTIPATION Last administered on 02/26/19 08:26; Admin Dose 10 MG; Start 02/25/19 at 12:00 Mineral Oil (Mineral Oil) 30 ml TID PO Last administered on 02/26/19 08:30; Admin Dose 30 ML; Start 02/25/19 at 13:00 Edwardo MEYERS Feb 26, 2019 09:23
[2019-02-26 14:38] VITALS: BP 110/77; PULSE 83; RESP 18
[2019-02-26] MEDS ORDERED: PANT40TA4 PO (14:50)
[2019-02-26] MEDS ORDERED: IBUP800T48 PO (14:50)
--- NOTE | 2019-02-26 22:13 | DS ---
Date/Time of Note Date/Time of Note DATE: 02/26/19 TIME: 22:11 Discharge Summary Admission/Discharge Info Admit Date/Time Feb 22, 2019 at 10:41 Discharge Date/Time Feb 26, 2019 at 15:25 Patient Condition: Stable Hx of Present Illness The patient is a 48-year-old gentleman with history of GERD and hyperlipidemia. Patient is not on any statins stating he is trying to reduce his cholesterol with diet and exercise. Patient was evaluated by Dr. Gallegos for abdominal wall defect and incarcerated ventral hernia. Patient was brought to the hospital and underwent open incarcerated ventral hernia repair with mesh. Postoperatively patient experiencing significant pain and patient is being admitted for further management. Patient denies any fever chills denies any nausea vomiting. Hospital Course -Abdominal wall defect and incarcerated ventral hernia, status post open incarcerated ventral hernia repair with mesh by Dr. Gallegos. Continue IV fluids and postoperative antibiotic. Continue [place] and Dilaudid as needed for pain. Zofran as needed for nausea. Advance diet per surgery recommendations. -Constipation, resolved. -GERD continue Protonix. -Obesity Further recommendations based on clinical course. Plan of care discussed with Dr. Mccain. Home Meds Active Scripts Pantoprazole* (Pantoprazole*) 40 Mg Tablet.dr, 40 MG PO BID@0600,1800 for 30 Days Prov:RAS DEL ROSARIO 02/26/19 Ibuprofen* (Motrin*) 800 Mg Tab, 800 MG PO Q6H PRN for MILD PAIN LEVEL 1-3, #30 TAB Prov:RAS DEL ROSARIO 02/26/19 Follow-up Plan Follow-up with Dr. Gallegos in 2 weeks. Primary Care Provider Not On Staff Doctor Time spent on discharge: > 30 minutes Pending Labs Laboratory Tests Test 02/26/19 09:35 White Blood Count 8.1 10^3/ul (4.8-10.8) Red Blood Count 4.41 10^6/ul (4.70-6.10) Hemoglobin 13.2 g/dl (14.0-18.0) Hematocrit 41.0 % (42.0-52.0) Mean Corpuscular Volume 93.0 fl (82.0-101.0) Mean Corpuscular Hemoglobin 29.9 pg (29.0-33.0) Mean Corpuscular Hemoglobin Concent 32.2 g/dl (32.0-37.0) Red Cell Distribution Width 12.7 % (11.5-14.5) Platelet Count 134 10^3/UL (140-415) Mean Platelet Volume 11.4 fl (7.4-10.4) Immature Granulocytes % 0.400 % (0.001-0.429) Neutrophils % 75.7 % (39.0-77.0) Lymphocytes % 12.4 % (15.0-51.0) Monocytes % 8.2 % (0.0-11.0) Eosinophils % 3.1 % (0.0-7.0) Basophils % 0.2 % (0.0-2.0) Nucleated Red Blood Cells % 0.0 /100WBC (0.0-0.0) Immature Granulocytes # 0.030 10^3/ul (0.0-0.031) Neutrophils # 6.1 10^3/ul (1.6-7.5) Lymphocytes # 1.0 10^3/ul (0.8-2.9) Monocytes # 0.7 10^3/ul (0.3-0.9) Eosinophils # 0.3 10^3/ul (0.0-0.5) Basophils # 0.0 10^3/ul (0.0-0.1) Nucleated Red Blood Cells # 0.0 10^3/ul (0.0-0.0) RAS DEL ROSARIO Feb 26, 2019 22:13
== END 2019-02-26 15:25 | disposition home or self-care (01) | DRG 353 ==
LOC: REC 10:41 → EDSTATUS 16:00 → MS1 16:43
PROVIDERS: ADMIT Surgery; ATTEND Surgery
PROC: 0KXL0ZZ Transfer Left Abdomen Muscle, Open Approach (ICD-10-PCS; 2019-02-22)
PROC: 0KXK0ZZ Transfer Right Abdomen Muscle, Open Approach (ICD-10-PCS; 2019-02-22)
PROC: 0WUF0JZ Supplement Abdominal Wall with Synthetic Substitute, Open Approach (ICD-10-PCS; principal; 2019-02-22 13:30)
DX: K43.6 Other and unspecified ventral hernia with obstruction, without gangrene (principal); Q79.59 Other congenital malformations of abdominal wall; E66.9 Obesity, unspecified; K21.9 Gastro-esophageal reflux disease without esophagitis; E78.5 Hyperlipidemia, unspecified; K59.00 Constipation, unspecified
CPT/HCPCS: 80053; 85025; 85610; 85730; J0461; J0690; J1170; J2175; J2270; J2405; J2710; J2765; J3010; J7030